=== PATIENT | female | born 2000 | race American Indian/Alaskan Native ===

== ENCOUNTER 2018-03-13 21:45 | Emergency (ER) | payer MEDICAID, OTHER ==
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
[2018-03-13] MEDS ORDERED: ZOFRAN ONE (23:31)
[2018-03-13] MEDS ORDERED: AMMONIA INHALANT IH ONE (23:55)
[2018-03-14 00:45] LABS: HCG Qualitative,Urine Negative (Negative)
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
[2018-03-14] MEDS ORDERED: TYLENOL PO ONE (04:29)
[2018-03-14 06:09] VITALS: BP 113/73
[2018-03-14] MEDS ORDERED: AMMONIA INHALANT IH ONE (23:00)
== END 2018-03-14 05:00 | disposition home or self-care (01) ==
LOC: ED 21:45
DX: S00.83XA Contusion of other part of head, initial encounter (principal); Y04.8XXA Assault by other bodily force, initial encounter; Y93.89 Activity, other specified; Y92.89 Other specified places as the place of occurrence of the external cause; Y99.8 Other external cause status
CPT/HCPCS: 70450; 70486; 72125; 81025; 94640; J2405